=== PATIENT | male | born 1975 | race African-American/Black ===

== ENCOUNTER 2019-02-27 16:37 | Emergency (ER) | payer MEDICAID ==
[~2019-02-27] VITALS: Ht 210.8 cm; Wt 90.8 kg
[2019-02-27 19:50] VITALS: BP 140/79
== END 2019-02-27 19:52 | disposition home or self-care (01) ==
LOC: ER 16:37
DX: R07.89 Other chest pain (principal); G89.29 Other chronic pain; F17.200 Nicotine dependence, unspecified, uncomplicated; Z88.0 Allergy status to penicillin
CPT/HCPCS: 93005; 99283

== ENCOUNTER 2019-03-10 08:43 | Emergency (ER) | payer MEDICAID ==
[~2019-03-10] VITALS: Ht 182.9 cm; Wt 91.8 kg
[2019-03-10 08:45] VITALS: BP 139/88
[2019-03-10] MEDS ORDERED: PRED20TA PO (09:39)
== END 2019-03-10 09:51 | disposition home or self-care (01) ==
LOC: ER 08:43
DX: R07.81 Pleurodynia (principal); G89.29 Other chronic pain; Z79.899 Other long term (current) drug therapy; Z88.0 Allergy status to penicillin
CPT/HCPCS: 93005; 99283

== ENCOUNTER 2019-03-25 13:02 | Emergency (ER) | payer MEDICAID ==
[~2019-03-25] VITALS: Ht 182.9 cm; Wt 100.5 kg
[2019-03-25 13:12] VITALS: BP 142/86
== END 2019-03-25 13:54 | disposition home or self-care (01) ==
LOC: ER 13:03
DX: M25.511 Pain in right shoulder (principal); G89.29 Other chronic pain; Z88.0 Allergy status to penicillin
CPT/HCPCS: 99281

== ENCOUNTER 2019-06-25 09:17 | Emergency (ER) | payer MEDICAID ==
[~2019-06-25] VITALS: Ht 182.9 cm; Wt 91.7 kg
--- NOTE | 2019-06-25 09:41 | NUR ---
patient states cotton tip from Q-Tip is stuck in left ear since 0600 this morning.
[2019-06-25 10:14] VITALS: BP 132/84
== END 2019-06-25 10:18 | disposition home or self-care (01) ==
LOC: ER 09:17
DX: H93.8X2 Other specified disorders of left ear (principal); G89.29 Other chronic pain; Z88.0 Allergy status to penicillin
CPT/HCPCS: 99282

== ENCOUNTER 2019-07-12 13:32 | Emergency (ER) | payer OTHER, MEDICAID ==
[~2019-07-12] VITALS: Ht 180.3 cm; Wt 88.0 kg
[2019-07-12 13:35] VITALS: BP 126/80
[2019-07-12] MEDS ORDERED: ketorolac tromethamine 15mg/ml inj. IM ONE (14:15)
[2019-07-12] MEDS ORDERED: IBUP-1984 PO (14:35)
[2019-07-12] MEDS ORDERED: CYCL-1 PO (14:35)
== END 2019-07-12 14:50 | disposition home or self-care (01) ==
LOC: ER 13:33
DX: M54.5 Low back pain (principal); G89.29 Other chronic pain; Z88.0 Allergy status to penicillin; Z79.899 Other long term (current) drug therapy
CPT/HCPCS: 96372; 99283; J1885

== ENCOUNTER 2019-11-01 07:10 | Emergency (ER) | payer MEDICAID ==
[~2019-11-01] VITALS: Ht 180.3 cm; Wt 91.0 kg
[~2019-11-01 07:10] MED LIST: CYCL-1 PO
[2019-11-01 07:12] VITALS: BP 152/78
== END 2019-11-01 08:02 | disposition home or self-care (01) ==
LOC: ER 07:10
DX: R11.0 Nausea (principal); G89.29 Other chronic pain; Z88.0 Allergy status to penicillin
CPT/HCPCS: 99281

== ENCOUNTER 2019-11-13 15:42 | Emergency (ER) | payer MEDICAID ==
[~2019-11-13] VITALS: Ht 180.3 cm; Wt 92.7 kg
[2019-11-13 15:48] VITALS: BP 124/78
[2019-11-13] MEDS ORDERED: mupirocin 2% ointment 22GM TP STA (16:05)
== END 2019-11-13 16:44 | disposition home or self-care (01) ==
LOC: ER 15:43
DX: L02.214 Cutaneous abscess of groin (principal); L24.9 Irritant contact dermatitis, unspecified cause; G89.29 Other chronic pain; Z88.0 Allergy status to penicillin; Z79.899 Other long term (current) drug therapy
CPT/HCPCS: 99283

== ENCOUNTER 2020-01-08 14:54 | Emergency (ER) | payer MEDICAID ==
[~2020-01-08] VITALS: Ht 180.3 cm; Wt 72.0 kg
[2020-01-08 15:10] VITALS: BP 118/77
[2020-01-08] MEDS ORDERED: CEPH250T PO (16:34)
[2020-01-08] MEDS ORDERED: MUPI22OI30 TOP (16:34)
--- NOTE | 2020-01-08 16:54 | NUR ---
Patient seen, assessed and discharged by provider.
== END 2020-01-08 16:55 | disposition home or self-care (01) ==
LOC: ER 14:54
DX: L08.9 Local infection of the skin and subcutaneous tissue, unspecified (principal); R21 Rash and other nonspecific skin eruption; M79.672 Pain in left foot; M79.671 Pain in right foot; G89.29 Other chronic pain; Z88.0 Allergy status to penicillin; Z79.2 Long term (current) use of antibiotics; Z79.899 Other long term (current) drug therapy
CPT/HCPCS: 99283

== ENCOUNTER 2020-04-11 23:00 | Emergency (ER) | payer MEDICAID ==
[~2020-04-11] VITALS: Ht 180.3 cm; Wt 92.7 kg
[2020-04-11] MEDS ORDERED: PRED20TA PO (23:49)
[2020-04-11] MEDS ORDERED: METH-360 PO (23:49)
[2020-04-11] MEDS ORDERED: dexamethasone 4mg tablet PO ONE (23:50)
[2020-04-11] MEDS ORDERED: acetaminophen 325mg tablet PO ONE (23:50)
[2020-04-11] MEDS ORDERED: ketorolac tromethamine 15mg/ml inj. IM ONE (23:50)
[2020-04-12 00:05] VITALS: BP 132/86
== END 2020-04-12 00:01 | disposition home or self-care (01) ==
LOC: ER 23:01
DX: M54.42 Lumbago with sciatica, left side (principal); G89.29 Other chronic pain; Z88.0 Allergy status to penicillin; Z79.899 Other long term (current) drug therapy
CPT/HCPCS: 96372; 99283; J1885

== ENCOUNTER 2020-08-01 15:56 | Emergency (ER) | payer MEDICAID ==
[~2020-08-01] VITALS: Ht 180.3 cm; Wt 100.0 kg
[~2020-08-01 15:56] MED LIST changes: +METH-360 PO
[2020-08-01 15:59] VITALS: BP 138/79
[2020-08-01] MEDS ORDERED: CefTRIAXone 1000mg IM Kit (w/lidocaine diluent) IM STA (17:58)
[2020-08-01] MEDS ORDERED: azithromycin 250mg tablet PO ONE (18:00)
[2020-08-01] MEDS ORDERED: DOXY100C76 PO (18:27)
[2020-08-01 18:43] LABS: CLARITY,URINE CLEAR (Clear); COLOR,URINE YELLOW (Yellow); GLUCOSE, URINE NEGATIVE (Neg); KETONES,URINE NEGATIVE (Neg); LEUKOCYTE ESTERASE ,URINE NEGATIVE (Neg); NITRITES, URINE NEGATIVE (Neg); OCCULT BLOOD,URINE NEGATIVE (Neg); PH,URINE 7.5 (4.8-8.0); PROTEIN,URINE NEGATIVE (Neg)
[2020-08-01 18:53] LABS: UA COLLECTION TYPE VOIDED
== END 2020-08-01 18:35 | disposition home or self-care (01) ==
LOC: ER 15:56
DX: R36.9 Urethral discharge, unspecified (principal); Z11.3 Encounter for screening for infections with a predominantly sexual mode of transmission
CPT/HCPCS: 36415; 81003; 87491; 87591; 96372; 99283; J0696

== ENCOUNTER 2021-01-06 18:22 | Emergency (ER) | payer MEDICAID ==
[~2021-01-06] VITALS: Ht 180.3 cm; Wt 95.5 kg
[2021-01-06 18:35] VITALS: BP 161/99
== END 2021-01-06 19:17 | disposition home or self-care (01) ==
LOC: ER 18:23
DX: B08.5 Enteroviral vesicular pharyngitis (principal); G89.29 Other chronic pain; Z88.0 Allergy status to penicillin; Z79.899 Other long term (current) drug therapy
CPT/HCPCS: 99282

== ENCOUNTER 2021-10-05 08:24 | Day surgery (SDC) | payer MEDICAID ==
[2021-09-28 14:19] LABS: BASOPHILS % (AUTO) 0.5 % (0-1); EOSINOPHILS # (AUTO) 0.1 X10'3 (0-0.9); EOSINOPHILS % (AUTO) 1.1 % (0-6); LYMPHOCYTES # (AUTO) 1.6 X10'3 (1.1-4.8); MEAN CORPUSCULAR HEMOGLOBIN 28.7 PG (27.0-31.0); MEAN CORPUSCULAR HGB CONC 33.2 g/dL (33.0-36.5); MEAN CORPUSCULAR VOLUME 86.5 FL (78-98); MEAN PLATELET VOLUME 7.2 FL (7.4-10.4); MONOCYTES # (AUTO) 0.5 X10'3 (0-0.9); MONOCYTES % (AUTO) 9.9 % (2-12); NEUTROPHILS % (AUTO) 58.5 % (42-75); PRE OP HEMATOCRIT 39.5 % (42.0-52.0); PRE OP HEMOGLOBIN 13.1 g/dL (14.0-17.9); PRE OP PLATELET COUNT 228 X10'3 (140-440); RED BLOOD COUNT 4.57 X10'6 (4.70-6.10); RED CELL DISTRIBUTION WIDTH 13.3 % (11.5-14.5)
[2021-09-28 14:40] LABS: ALBUMIN 3.8 G/DL (3.4-5.0); BLOOD UREA NITROGEN 10 MG/DL (7-18); BUN/CREATININE RATIO 8.5 (5.4-32.0); CALCIUM 9.1 MG/DL (8.5-10.1); CHLORIDE 108 MMOL/L (99-107); CREATININE 1.18 MG/DL (0.60-1.10); PRE OP ANION GAP 6 (8-16); PRE OP AST 22 U/L (10-37); PRE OP GLUCOSE 80 MG/DL (70-104); PRE OP POTASSIUM 3.5 MMOL/L (3.4-5.1); PRE OP SODIUM 143 MMOL/L (135-145); TOTAL CARBON DIOXIDE 28.7 MMOL/L (24-32); eGFR 80 ML/MIN
[2021-09-28 14:57] LABS: ALBUMIN/GLOBULIN RATIO 0.9 (1.1-1.5); ALKALINE PHOSPHATASE 95 IU/L (46-116); PRE OP ALT 35 U/L (30-65); PRE OP BILIRUB, TOTAL 0.5 MG/DL (0.0-1.0); TOTAL PROTEIN 7.9 G/DL (6.4-8.2)
[2021-10-05] VITALS (12 sets, daily range): BP systolic 104–128; BP diastolic 74–91
[~2021-10-05] VITALS: Ht 180.3 cm; Wt 101.2 kg
[~2021-10-05 08:24] MED LIST changes: -CYCL-1 PO; -METH-360 PO; +NO HOME MEDS; +clindamycin-Cleocin 900mg/D5W 50 ML IV ONE; +famotidine 20mg tablet PO ONE; +ringers solution, lacted 1,000 ML IV SCH
--- NOTE | 2021-10-05 09:30 | NUR ---
PT IS CURRENTLY LIVING IN CAR, STATES THAT HE DOES HAVE A RIDE FOR AFTER SURGERY, DISCUSSED THAT PT WILL BE UNABLE TO DRIVE FOR 24 HRS POST OP, OFFERED INSPECTOR CASING FOR RESOURCE HELP BUT PT UNINTERESTED.
[2021-10-05] MEDS ORDERED: BUPIVAcaine/PF 2.5mg/ml (0.25%) 10ml vial ONE ×3 (10:04→10:24)
[2021-10-05] MEDS ORDERED: LIDOcaine 1% 30ml preserv. free vial ONE (10:04)
[2021-10-05] MEDS ORDERED: BUPIVACAINE liposomal/PF 13.3 MG/ML vial IM ONE (10:05)
[2021-10-05] MEDS ORDERED: sevoflurane 250ml liquid IH ONE (10:22)
[2021-10-05] MEDS ORDERED: fentaNYL/PF 50MCG/1 ML 2ML syringe ONE (10:22)
[2021-10-05] MEDS ORDERED: neostigmine methylsulfate 1 MG/ML 10ml vial ONE ×2 (10:23→11:45)
[2021-10-05] MEDS ORDERED: midazolam 1 mg/ML 2ml injection ONE (10:23)
[2021-10-05] MEDS ORDERED: rocuronium 10mg/ml inj IV ONE (10:23)
[2021-10-05] MEDS ORDERED: propofol inj 20 ML IV ONE (10:23)
[2021-10-05] MEDS ORDERED: ondansetron/PF 4mg/2ml inj IV PRN (10:40)
[2021-10-05] MEDS ORDERED: morphine 2 MG/ML inj. syringe IV PRN (10:40)
[2021-10-05] MEDS ORDERED: meperidine/PF 25mg/ml syringe IV PRN ×2 (10:40)
[2021-10-05] MEDS ORDERED: proCHLORperazine 10 MG/2 ml inj IV PRN (10:40)
[2021-10-05] MEDS ORDERED: ringers solution, lacted 1,000 ML IV SCH (10:40)
[2021-10-05] MEDS ORDERED: morphine 4 MG/ML inj SYRINge IV PRN (10:40)
[2021-10-05] MEDS ORDERED: glycopyrrolate 0.2mg/ml inj ONE (11:45)
--- NOTE | 2021-10-05 11:47 | NUR ---
Received from OR via [employer], accompanied by Anesthesiologist and report given by DR. ARANDA Anesthesiologist. PATIENT WAKING UP, NO S/S OF PAIN, V/S WNL, SCD ON, 20G TO LUE, ABDOMEN LAP SITES C/D/I WITH ABDOMINAL BINDER. Addendum: 10/05/21 at 1251 by Brenden Delatorre RN Amended: Links added. Addendum: 10/05/21 at 1659 by Brenden Delatorre RN Received from OR via [employer], accompanied by Anesthesiologist and report given by DR. ARANDA Anesthesiologist. PATIENT WAKING UP, NO S/S OF PAIN, V/S WNL, SCD ON, 20G TO LUE, ABDOMEN LAP SITES C/D/I.
[2021-10-05] MEDS ORDERED: oxyCODONE/APAP 5-325mg tablet PO PRN (12:10)
[2021-10-05] MEDS: meperidine/PF 25mg/ml syringe IV PRN ×2 (12:45→12:52)
--- NOTE | 2021-10-05 13:42 | NUR ---
ALL DISCHARGE CRITERIA HAS BEEN MET. VSS, PAIN AT A TOLERABLE LEVEL, ABLE TO SAFELY AMBULATE AND TRANSFER SELF. IV TAKEN OUT WITHOUT ANY COMPLICATIONS. ALL DISCHARGE INSTRUCTIONS COVERED WITH PATIENT AND ALL QUESTIONS ANSWERED. PATIENT TAKEN OUT VIA WHEELCHAIR TO PERSONAL VEHICLE WHERE FRIEND DROVE PATIENT HOME. PATIENT STATED THAT HE WILL STAY IN THE CAR AND RN INSTRUCTED NOT TO DRIVE IN THE NEXT 24 HOURS. Addendum: 10/05/21 at 1404 by Brenden Delatorre RN Amended: Links added.
== END 2021-10-05 13:42 | disposition home or self-care (01) ==
LOC: PAS 08:24
PROVIDERS: ATTEND Surgery
DX: K42.0 Umbilical hernia with obstruction, without gangrene (principal); Z88.0 Allergy status to penicillin; Z79.899 Other long term (current) drug therapy
CPT/HCPCS: 36415; 49653; 64488; 80053; 82948; 85025; 93005; C1781; C9290; J2175; J2250; J2405; J2704; J2710; J3010; J3490; J7030; J7120; S2900; Z7506; Z7508; Z7512; A4215; A4618

== ENCOUNTER 2021-12-27 17:37 | Emergency (ER) | payer MEDICAID ==
[~2021-12-27] VITALS: Ht 180.3 cm; Wt 100.0 kg
[~2021-12-27 17:37] MED LIST changes: -clindamycin-Cleocin 900mg/D5W 50 ML IV ONE; -famotidine 20mg tablet PO ONE; -ringers solution, lacted 1,000 ML IV SCH
[2021-12-27 17:39] VITALS: BP 140/97
[2021-12-27] MEDS ORDERED: ketorolac trometh inj. 60 MG/2 ML VIAL IM ONE (19:00)
== END 2021-12-27 20:21 | disposition home or self-care (01) ==
LOC: ER 17:38
DX: M54.50 Low back pain, unspecified (principal); G89.29 Other chronic pain; Z88.0 Allergy status to penicillin
CPT/HCPCS: 96372; 99283; J1885

== ENCOUNTER 2024-12-25 08:49 | Outpatient (CLI) | payer MEDICAID ==
--- NOTE | 2024-12-25 11:40 | RADIOLOGY REPORT ---
CLINICAL INFORMATION: 49 years old, Male; OTHER INTVRT DISC DEGEN, LUM RGN WITH DISCOG BACK PAIN ONLY. TECHNIQUE: Multisequence multiplanar MRI images of the lumbar spine were obtained without contrast. COMPARISON: None INTERPRETATION: Vertebral body alignment is within normal limits. Vertebral body heights are maintained. Posterior elements are intact. Prominent Modic type 1 endplate changes at L3-L4 and L4-L5. Visualized spinal cord and cauda equina are within normal limits. The conus medullaris is appropriate in signal at the L1-L2 level. Paraspinal soft tissues are unremarkable. L1-L2: No significant disc bulge or spinal canal stenosis. No significant neural foraminal stenosis. L2-L3: There is a mild degree of congenital spinal canal stenosis. Facet hypertrophy with moderate bilateral neural foraminal stenoses. Mild encroachment of the neural foramina by a mild diffuse disc bulge also contributes to the neural foraminal stenoses. L3-L4: Disc desiccation with moderate disc space narrowing and diffuse disc bulge with concomitant congenital spinal canal narrowing, facet hypertrophy, and infolding of the ligamentum flavum contributing to moderate spinal canal stenosis with crowding of the cauda equina and effacement of the lateral recesses. Facet hypertrophy and encroachment of the neural foramina by the disc bulge as well as possible superimposed bilateral foraminal disc protrusions contributes to moderate to severe bilateral neural foraminal stenoses, right greater than left. L4-L5: Disc desiccation with [id number] disc space narrowing. Diffuse disc bulge with moderate spinal canal stenosis and partial effacement of the lateral recesses. There is crowding of the cauda equina. Facet hypertrophy with moderate bilateral neural foraminal stenoses. L5-S1: Disc desiccation with moderate disc space narrowing and diffuse disc bulge mildly indenting the ventral aspect of the thecal sac. No significant spinal canal stenosis. Partial effacement of the lateral recesses bilaterally. Facet hypertrophy and encroachment of the neural foramina by the disc bulge contributes to severe right and moderate to severe left neural foraminal stenoses. IMPRESSION: 1. Degenerative disc disease and facet disease in the lumbar spine with associated spinal canal, subarticular, and neural foraminal stenoses as detailed above. 2. There is congenital spinal canal narrowing contributing to the spinal canal stenoses. 3. Modic type 1 endplate changes at L3-L4 and L4-L5. 4. Additional findings as described above.
== END 2024-12-25 23:59 | disposition home or self-care (01) ==
LOC: MRI02 08:49
PROVIDERS: ATTEND Physician Assistant Medical
DX: M51.17 Intervertebral disc disorders with radiculopathy, lumbosacral region (principal); M48.07 Spinal stenosis, lumbosacral region; M47.26 Other spondylosis with radiculopathy, lumbar region
CPT/HCPCS: 72148